=== PATIENT | female | born 1995 | race African-American/Black ===

== ENCOUNTER 2016-12-17 21:12 | Emergency (ER) | payer OTHER | END 2016-12-17 22:50 | disposition home or self-care (01) | LOC: ER 21:12 | DX: J20.9 Acute bronchitis, unspecified (principal); F32.9 Major depressive disorder, single episode, unspecified; F90.9 Attention-deficit hyperactivity disorder, unspecified type; J45.909 Unspecified asthma, uncomplicated; Z79.899 Other long term (current) drug therapy; Z91.018 Allergy to other foods | CPT/HCPCS: 87502 ==